=== PATIENT | male | born 1955 | race Caucasian/White ===

== ENCOUNTER 2025-05-05 07:55 | Day surgery (SDC) | payer MEDICARE, BC, SELFPAY ==
[2025-05-04 11:47] VITALS: BMI 24.9
[2025-05-05] VITALS (9 sets, daily range): BP systolic 107–169; BP diastolic 68–92; PULSE 64–84; RESP 12–18; TEMP 36.5–37.2; O2SAT 95–98; BMI 23.8
[2025-05-05] MEDS: SODIUM CHLORIDE 0.9% 500 ML 500 ML 20 ML IV (09:59)
[2025-05-05] MEDS: fentaNYL CIT INJ 50 mCg/ML AMP 2ML (ASD USE ONLY) IVP (10:05)
[2025-05-05] MEDS: MIDAZOLAM INJ 1 MG/ML VIAL 2 ML (ASD USE ONLY) 2 MG IVP (10:08)
--- NOTE | 2025-05-05 10:58 | SUR.PHASEII ---
brought back to help with get dressed at the request of .
== END 2025-05-05 11:10 | disposition home or self-care (01) ==
PROVIDERS: PCP Family Medicine; Referring Provider Specialist; Visit Provider Specialist
PROC: 0DBE8ZX Excision of Large Intestine, Via Natural or Artificial Opening Endoscopic, Diagnostic (ICD-10-PCS; CPT 45380; principal; 2025-05-05 09:00)
DX: Z12.11 Encounter for screening for malignant neoplasm of colon (principal); K64.9 Unspecified hemorrhoids; K57.30 Diverticulosis of large intestine without perforation or abscess without bleeding
CPT/HCPCS: G0121; J1200; J2250; J3010; J7999